=== PATIENT | female | born 1955 | race Two or more races ===

== ENCOUNTER 2017-09-19 17:06 | Emergency (ER) | END 2017-09-19 20:31 | disposition home or self-care (01) ==

== ENCOUNTER 2017-11-24 14:58 | Emergency (ER) | END 2017-11-24 16:05 | disposition home or self-care (01) ==

== ENCOUNTER → 2017-12-06 | Emergency (ER) | END | disposition home or self-care (01) ==

== ENCOUNTER 2018-06-19 12:29 | Emergency (ER) | payer MEDICAID, OTHER ==
[~2018-06-19] VITALS: Wt 68.0 kg
[~2018-06-19 12:29] MED LIST: CEPH-443 PO; IBUP800T48 PO; NAPR-985 PO; TRAM50TA2 PO
[2018-06-19 12:37] VITALS: BP 146/65; PULSE 86; RESP 16
[2018-06-19] MEDS ORDERED: AMOX500C2 PO (14:42)
[2018-06-19] MEDS ORDERED: BENZ-6 PO (14:54)
--- NOTE | 2018-06-19 15:02 | ERD ---
ER Documentation Chief Complaint Chief Complaint cold sx: cough, runny nose, HILLS, fevers x3d no relief w tylenol HPI Patient is a 62-year-old female presents to the ER for concerns of a cough, r hinorrhea, frontal headache and intermittent tactile fevers for the last 3 days. Patient reports taking Tylenol with minimal alleviation of symptoms. Patient reports yellow-green nasal secretions. Patient is her cough is dry in nature. Patient reports tactile fevers. Patient denies any generalized body aches, nausea, vomiting, chest pain, shortness of breath, abdominal pain, diarrhea. Patient denies neck pain or neck stiffness. No recent travel. No sick contacts. ROS All systems reviewed and are negative except as per history of present illness. Medications Home Meds Active Scripts Benzonatate* (Tessalon Perle*) 100 Mg Capsule, 100 MG PO Q8H PRN for COUGH, #20 CAP Prov:ISAIAH BEACH PA-C 06/19/18 Amoxicillin* (Amoxicillin*) 500 Mg Cap, 500 MG PO BID for 7 Days, CAP Prov:ISAIAH BEACH PA-C 06/19/18 Tramadol HCl (Tramadol HCl) 50 Mg Tablet, 50 MG PO Q4 PRN for PAIN, #30 TAB Prov:MATILDA IBARRA MD 12/06/17 Naproxen* (Naprosyn*) 500 Mg Tablet, 500 MG PO BID PRN for PAIN AND/OR INFLAMMATION, #30 TAB Prov:ALEX NATHAN PA-C 11/24/17 Ibuprofen* (Motrin*) 800 Mg Tab, 800 MG PO Q6H PRN for PAIN AND OR ELEVATED T EMP, #30 TAB Prov:SON HAZEL MD 09/19/17 Cephalexin* (Keflex*) 500 Mg Capsule, 500 MG PO QID for 7 Days, CAP Prov:SON HAZEL MD 09/19/17 Allergies Allergies: Coded Allergies: No Known Allergy (Verified Allergy, 04/04/11) PMhx/Soc History of Surgery: No Anesthesia Reaction: No Hx Neurological Disorder: No Hx Respiratory Disorders: No Hx Cardiac Disorders: No Hx Psychiatric Problems: No Hx Miscellaneous Medical Probl: No Hx Alcohol Use: No Hx Substance Use: No Hx Tobacco Use: Yes (daily smoker) Smoking Status: Never smoker FmHx Family History: No diabetes Physical Exam Vitals Vital Signs Date Temp Pulse Resp B/P (MAP) Pulse Ox O2 O2 Flow FiO2 Time Delivery Rate 06/19/18 97.4 86 16 146/65 95 12:37 (92) Physical Exam GENERAL: Well-developed, well-nourished female. Appears in no acute distress. Speaking in full sentences HEAD: Normocephalic, atraumatic. EYES: Pupils are equally reactive bilaterally. EOMs grossly intact. No conjunctival erythema. ENT: Bilateral tympanic members are nonerythematous, nonbulging. Turbinates are erythematous. Patient has tenderness to palpation bilateral frontal and maxillary sinuses. Patient does elicit increased pain when bending head downwards. Moist mucous membranes. No uvula deviation. No kissing tonsils. NECK: Supple. No meningismus. Normal range of motion of the neck. LUNG: Clear to auscultation bilaterally. No rhonchi, wheezing, rales or coarse breath sounds. HEART: Regular rate and rhythm. No murmurs, rubs or gallops. BACK: No midline tenderness. EXTREMITIES: Equal pulses bilaterally. No peripheral clubbing, cyanosis or edema. No unilateral leg swelling. NEUROLOGIC: Alert and oriented. Moving all four extremities without any difficulty. Normal speech. Steady gait. SKIN: Normal color. Warm and dry. No rashes or lesions. Procedures/MDM MEDICAL DECISION MAKING: Patient is a 62-year-old female presents ER for concerns of cough, nasal congestion and tactile fevers for the last 3 days patient was afebrile. Patient was not hypoxic. ENT exam was concerning for sinusitis. Lung exam was normal. Given these findings, the patient's presentation is most consistent with sinusitis. Low suspicion for pneumonia, ACS, pleural effusion, PE, pneumothorax, meningitis otitis externa, acute otitis media, strep pharyngitis, epiglottitis or peritonsillar abscess. Patient was nontoxic, non-ill appearing prior to discharge. PRESCRIPTIONS: Tessalon Perles, amoxicillin DISCHARGE: At this time, patient is stable for discharge and outpatient management. Supportive therapies such as OTC throat lozenges, salt water gurgles, popsicles and jello discussed. I have instructed the patient to follow-up with his/her primary care physician in 1-2 days. I have instructed the patient to promptly return to the ER for any new or worsening symptoms including increased pain, swelling, fever, nausea, vomiting, weakness or difficulty breathing. The patient and/or family expressed understanding of and agreement with this plan. All questions were answered. Home care instructions were provided. Disclaimer: Inadvertent spelling and grammatical errors are likely due to EHR/dictation software use and do not reflect on the overall quality of patient care. Also, please note that the electronic time recorded on this note does not necessarily reflect the actual time of the patient encounter. Departure Diagnosis: Primary Impression: Sinusitis Sinusitis location: unspecified location Chronicity: unspecified Qualified Codes: J32.9 - Chronic sinusitis, unspecified Additional Impression: Upper respiratory infection URI type: unspecified URI Qualified Codes: J06.9 - Acute upper respiratory infection, unspecified Condition: Stable Patient Instructions: Preventing Common Respiratory Infections, Sinusitis, Abx Tx Referrals: [facility] YOU HAVE RECEIVED A MEDICAL SCREENING EXAM AND THE RESULTS INDICATE THAT YOU DO NOT HAVE A CONDITION THAT REQUIRES URGENT TREATMENT IN THE EMERGENCY DEPARTMENT. FURTHER EVALUATION AND TREATMENT OF YOUR CONDITION CAN WAIT UNTIL YOU ARE SEEN IN YOUR DOCTORS OFFICE WITHIN THE NEXT 1-2 DAYS. IT IS YOUR RESPONSIBILITY TO MAKE AN APPOINTMENT FOR FOLOW-UP CARE. IF YOU HAVE A PRIMARY DOCTOR --you should call your primary doctor and schedule an appointment IF YOU DO NOT HAVE A PRIMARY DOCTOR YOU CAN CALL OUR PHYSICIAN REFERRAL HOTLINE AT IF YOU CAN NOT AFFORD TO SEE A PHYSICIAN YOU CAN CHOSE FROM THE FOLLOWING [facility] [address] [facility] [facility] [address] [facility] [facility] [address] [facility] [facility] [address] [facility] [facility] [address] [facility] [facility]. [address] [facility]. [facility] YOU HAVE RECEIVED A MEDICAL SCREENING EXAM AND THE RESULTS INDICATE THAT YOU DO NOT HAVE A CONDITION THAT REQUIRES URGENT TREATMENT IN THE EMERGENCY DEPARTMENT. FURTHER EVALUATION AND TREATMENT OF YOUR CONDITION CAN WAIT UNTIL YOU ARE SEEN IN YOUR DOCTORS OFFICE WITHIN THE NEXT 1-2 DAYS. IT IS YOUR RESPONSIBILITY TO MAKE AN APPOINTMENT FOR FOLOW-UP CARE. IF YOU HAVE A PRIMARY DOCTOR --you should call your primary doctor and schedule and appointment IF YOU DO NOT HAVE A PRIMARY DOCTOR YOU CAN CALL OUR PHYSICIAN REFERRAL HOTLINE AT . IF YOU CAN NOT AFFORD TO SEE A PHYSICIAN YOU CAN CHOSE FROM THE FOLLOWING [facility] INSTITUTIONS: [facility] [address] [place] [address] [facility] [address] [place] [address] [facility] [address] [place] [address] Additional Instructions: Llame al doctor MAANA y acosta anna CHICHI PARA DENTRO DE 1-2 RANDHAWA.Dgale a la secretaria que nosotros le instruimos hacer esta chichi.Avise o llame si quinones condicin se empeora antes de la chichi. Regresa aqui si peor o no mejor. ISAIAH BEACH PA-C Jun 19, 2018 15:02
== END 2018-06-19 15:00 | disposition home or self-care (01) ==
LOC: FTE 12:29
DX: J32.9 Chronic sinusitis, unspecified (principal); F17.210 Nicotine dependence, cigarettes, uncomplicated; J06.9 Acute upper respiratory infection, unspecified
CPT/HCPCS: 99283

== ENCOUNTER 2018-09-27 01:38 | Emergency (ER) | payer MEDICARE, OTHER ==
[~2018-09-27] VITALS: Ht 152.4 cm; Wt 65.2 kg
[~2018-09-27 01:38] MED LIST changes: +AMOX500C2 PO; +BENZ-6 PO
[2018-09-27 01:41] VITALS: BP 109/59; PULSE 77; RESP 16; Ht 152.4 cm; Wt 65.2 kg
--- NOTE | 2018-09-27 03:07 | ERD ---
ER Documentation Chief Complaint Chief Complaint neck pain, dizziness and vomiting x 4 days HPI 63-year-old female, previously healthy, presents to the emergency department, complaining of 4 days with diarrhea and nausea after visiting her family in [place] 4 days ago; where several family members had similar symptoms. The patient is experiencing approximately 3 episodes of watery diarrhea per day, associated with mild mucus. The patient also reports to episodes of postprandial emesis per day. She denies abdominal pain, no fever, no chills. In addition, the patient has been complaining of neck pain during the last 2 days. No headache, no blurry vision, no distal weakness, numbness or tingling. ROS All systems reviewed and are negative except as per history of present illness. Medications Home Meds Active Scripts Benzonatate* (Tessalon Perle*) 100 Mg Capsule, 100 MG PO Q8H PRN for COUGH, #20 CAP Prov:ISAIAH BEACH PA-C 06/19/18 Amoxicillin* (Amoxicillin*) 500 Mg Cap, 500 MG PO BID for 7 Days, CAP Prov:ISAIAH BEACH PA-C 06/19/18 Tramadol HCl (Tramadol HCl) 50 Mg Tablet, 50 MG PO Q4 PRN for PAIN, #30 TAB Prov:MATILDA IBARRA MD 12/06/17 Naproxen* (Naprosyn*) 500 Mg Tablet, 500 MG PO BID PRN for PAIN AND/OR INFLAMMATION, #30 TAB Prov:ALEX NATHAN PA-C 11/24/17 Ibuprofen* (Motrin*) 800 Mg Tab, 800 MG PO Q6H PRN for PAIN AND OR ELEVATED TEMP, #30 TAB Prov:SON HAZEL MD 09/19/17 Cephalexin* (Keflex*) 500 Mg Capsule, 500 MG PO QID for 7 Days, CAP Prov:SON HAZEL MD 09/19/17 Allergies Allergies: Coded Allergies: No Known Allergy (Verified Allergy, 04/04/11) PMhx/Soc History of Surgery: No Anesthesia Reaction: No Hx Neurological Disorder: No Hx Respiratory Disorders: No Hx Cardiac Disorders: No Hx Psychiatric Problems: No Hx Miscellaneous Medical Probl: No Hx Alcohol Use: No Hx Substance Use: No Hx Tobacco Use: Yes (daily smoker) Physical Exam Vitals Vital Signs Date Temp Pulse Resp B/P (MAP) Pulse Ox O2 O2 Flow FiO2 Time Delivery Rate 09/27/18 98.9 77 16 109/59 99 01:41 (76) Physical Exam Patient alert, oriented, vital signs stable. HEENT: Normocephalic, atraumatic. EYES: PERRLA, EOMI, Sclera and conjunctiva appear normal. EARS: Canals clear, tympanic membranes WNL. THROAT: Normal oropharynx. NECK: Supple, No lymphadenopathy. Full ROM without pain or tenderness. HEART: RRR, no rubs, murmurs, clicks or gallops. LUNGS: Clear to auscultation. ABDOMEN: Soft, non-tender without masses or hepatosplenomegaly. EXTREMITIES: No edema bilaterally. BACK: Full ROM, no deformity, normal back exam NEURO: Cranial nerves grossly intact, no motor or sensory deficit SKIN: No rashes, no petechia. Results 24 hrs Current Medications Medications Dose Sig/Gwendolyn Start Time Status Last (Trade) Ordered Route PRN Stop Time Admin Dose Reason Admin Ketorolac 15 mg ONCE STAT 09/27/18 DC 09/27/18 Tromethamine IM 03:52 09/27/18 04:10 (Toradol) 03:54 Ondansetron 4 mg ONCE STAT 09/27/18 DC 09/27/18 HCl (Zofran ODT 03:52 09/27/18 04:09 Odt) 03:54 Procedures/MDM Physical exam unremarkable, patient in no distress, hydrated, adequate oral intake, abdomen, soft, nontender, no peritoneal signs. Differential diagnosis include but not limited to: gastrointestinal infection bacterial/viral, UTI, appendicitis, colitis, food poisoning, food intolerance. Low suspicion for acute abdomen Physical examination and clinical presentation consistent most likely with gastroenteritis. During the ED course the patient remained stable, overall improvement of the symptoms after receiving treatment in the emergency department with Zofran and Toradol. Clinical impression discussed with the patient who agrees with management. The patient is stable to be discharged home, Some side effects of prescribed medications (headache, rash, nausea, vomiting, diarrhea, interactions with other medications) were reviewed. The patient requires a follow up with the primary care provider in the next 48h. If symptoms persist, worsen or new symptoms develop, then patient should return to the ED immediately. Disclaimer: Inadvertent spelling and grammatical errors are likely due to EHR/dictation software use and do not reflect on the overall quality of patient care. Also, please note that the electronic time recorded on this note does not necessarily reflect the actual time of the patient encounter. Departure Diagnosis: Primary Impression: Gastroenteritis Condition: Stable Additional Instructions: Muchas tejas por [facility] para quinones servicio. Esperamos que en quinones visita a la santiago de emergencia quinones problema medico haya sido solucionado y que se sienta mucho mejor. Para estar seguros que quinones mejoria sigue en proceso, le pedimos el favor de hacer anna michael de seguimiento medico con quinones doctor primario en los proximos 2-4 lynn. Lleve con usted estos documentos y las medicinas recetadas. Si austen sintomas empeoran, NO SE ESPERE, por favor regrese a santiago de emergencia INMEDIATAMENTE. En servando que usted no tenga un mdico de atencin primaria: Llame al mdico o clnica comunitaria de referencia que aparece abajo ba las horas de consultorio para hacer anna michael para que le vean. CLINICAS: [facility] [phone] [address] [facility] [phone] [address] [facility] [facility] [phone] [facility] [phone] [address] [facility]. [place] [id number] [phone] [facility]. [phone] DUNG OJEDA MD Sep 27, 2018 03:07
[2018-09-27] MEDS ORDERED: KETOROLAC 15 MG INJ IM STA (03:52)
[2018-09-27] MEDS ORDERED: ONDANSETRON (ODT) 4 MG TAB ODT STA (03:52)
[2018-09-27] MEDS ORDERED: ONDA4TAB8 PO (04:46)
[2018-09-27] MEDS ORDERED: CEPH-443 PO (04:46)
[2018-09-27] MEDS ORDERED: RANI150T35 PO (04:46)
== END 2018-09-27 05:20 | disposition home or self-care (01) ==
LOC: FTE 01:38
DX: K52.9 Noninfective gastroenteritis and colitis, unspecified (principal); F17.210 Nicotine dependence, cigarettes, uncomplicated
CPT/HCPCS: 96372; 99284; J1885

== ENCOUNTER 2018-11-10 10:01 | Emergency (ER) | payer MEDICARE, OTHER ==
[~2018-11-10] VITALS: Wt 78.0 kg
[~2018-11-10 10:01] MED LIST changes: +ONDA4TAB8 PO; +RANI150T35 PO
[2018-11-10 10:04] VITALS: BP 140/78; PULSE 83; RESP 18
[2018-11-10] MEDS ORDERED: ONDANSETRON 4 MG INJ IV STA (10:28)
[2018-11-10] MEDS ORDERED: SOD CHLORIDE 0.9% 1,000 ML IV STA (10:28)
[2018-11-10] MEDS ORDERED: KETOROLAC 30 MG INJ IV STA (10:28)
[2018-11-10] MEDS ORDERED: NAPR-985 PO (11:45)
--- NOTE | 2018-11-10 12:09 | ERD ---
ER Documentation Chief Complaint Chief Complaint DYSURIA X 8 DAYS WITH BACK PAIN HPI 83-year-old female presenting with urinary frequency and suprapubic tenderness with headache and neck stiffness. She has had no fevers. She took Tylenol last night. She denies any chest pain or shortness of breath. Denies dysuria. Has some mild flank pain. Denies medical problems. NKDA. Surgical history denies. Social history denies. ROS All systems reviewed and are negative except as per history of present illness. Medications Home Meds Active Scripts Naproxen* (Naprosyn*) 500 Mg Tablet, 500 MG PO BID PRN for PAIN AND/OR INFLAMMATION, #30 TAB Prov:TIGRE FIGUEROAC 11/10/18 Ranitidine Hcl* (Zantac*) 150 Mg Tablet, 150 MG PO BID PRN for EPIGASTRIC PAIN, #10 TAB Prov:DUNG PEREZ MD 09/27/18 Ondansetron Hcl* (Zofran*) 4 Mg Tablet, 4 MG PO Q8H PRN for NAUSEA AND/OR VOMITING, #12 TAB Prov:DUNG PEREZ MD 09/27/18 Cephalexin* (Keflex*) 500 Mg Capsule, 500 MG PO QID for 5 Days, CAP Prov:DUNG PEREZ MD 09/27/18 Benzonatate* (Tessalon Perle*) 100 Mg Capsule, 100 MG PO Q8H PRN for COUGH, #20 CAP Prov:ISAIAH BEACH-C 06/19/18 Amoxicillin* (Amoxicillin*) 500 Mg Cap, 500 MG PO BID for 7 Days, CAP Prov:ISAIAH BEACH-C 06/19/18 Tramadol HCl (Tramadol HCl) 50 Mg Tablet, 50 MG PO Q4 PRN for PAIN, #30 TAB Prov:MATILDA IBARRA MD 12/06/17 Naproxen* (Naprosyn*) 500 Mg Tablet, 500 MG PO BID PRN for PAIN AND/OR INFLAMMATION, #30 TAB Prov:ALEX NATHANC 11/24/17 Ibuprofen* (Motrin*) 800 Mg Tab, 800 MG PO Q6H PRN for PAIN AND OR ELEVATED TEMP, #30 TAB Prov:SON HAZEL MD 09/19/17 Cephalexin* (Keflex*) 500 Mg Capsule, 500 MG PO QID for 7 Days, CAP Prov:SON HAZEL MD 09/19/17 Allergies Allergies: Coded Allergies: No Known Allergy (Verified Allergy, 04/04/11) PMhx/Soc Medical and Surgical Hx: pt denies Medical Hx, pt denies Surgical Hx History of Surgery: No Anesthesia Reaction: No Hx Neurological Disorder: No Hx Respiratory Disorders: No Hx Cardiac Disorders: Yes (HTN) Hx Psychiatric Problems: No Hx Miscellaneous Medical Probl: No Hx Alcohol Use: No Hx Substance Use: No Hx Tobacco Use: No (daily smoker) Smoking Status: Never smoker FmHx Family History: No diabetes, No coronary disease, No other Physical Exam Vitals Vital Signs Date Temp Pulse Resp B/P (MAP) Pulse Ox O2 O2 Flow FiO2 Time Delivery Rate 11/10/18 98.1 83 18 140/78 99 10:04 (98) Physical Exam GENERAL: The patient is well-appearing, well-nourished, in no acute distress HEENT: Atraumatic. Conjunctivae are pink. Pupils equal, round, and reactive to light. There is no scleral icterus. Tympanic membranes clear bilaterally. Oropharynx clear. NECK: C-spine is soft and supple. There is no meningismus. There is no cervical lymphadenopathy. CHEST: Clear to auscultation bilaterally. There are no rales, wheezes or rhonchi. HEART: Regular rate and rhythm. No murmurs, clicks, rubs or gallops. ABDOMEN:Soft, nontender and nondistended. Good bowel sounds. No rebound or guarding. No gross peritonitis. No gross organomegaly or masses. BACK: No midline or flank tenderness. E Result Diagram: 11/10/18 1038 11/10/18 1038 Results 24 hrs Laboratory Tests Test 11/10/18 10:27 11/10/18 10:38 Bedside Urine pH (LAB) 6.0 Bedside Urine Protein (LAB) Negative Bedside Urine Glucose (UA) Negative Bedside Urine Ketones (LAB) Negative Bedside Urine Blood 2+ Bedside Urine Nitrite (LAB) Negative Bedside Urine Leukocyte Esterase (L Negative White Blood Count 10.7 10^3/ul Red Blood Count 4.26 10^6/ul Hemoglobin 13.1 g/dl Hematocrit 39.1 % Mean Corpuscular Volume 91.8 fl Mean Corpuscular Hemoglobin 30.8 pg Mean Corpuscular Hemoglobin Concent 33.5 g/dl Red Cell Distribution Width 12.1 % Platelet Count 291 10^3/UL Mean Platelet Volume 10.5 fl Immature Granulocytes % 0.300 % Neutrophils % 69.5 % Lymphocytes % 21.0 % Monocytes % 7.6 % Eosinophils % 0.9 % Basophils % 0.7 % Nucleated Red Blood Cells % 0.0 /100WBC Immature Granulocytes # 0.030 10^3/ul Neutrophils # 7.5 10^3/ul Lymphocytes # 2.3 10^3/ul Monocytes # 0.8 10^3/ul Eosinophils # 0.1 10^3/ul Basophils # 0.1 10^3/ul Nucleated Red Blood Cells # 0.0 10^3/ul Urine Color YELLOW Urine Clarity CLEAR Urine pH 5.0 Urine Specific Panacea 1.016 Urine Ketones NEGATIVE mg/dL Urine Nitrite NEGATIVE mg/dL Urine Bilirubin NEGATIVE mg/dL Urine Urobilinogen NEGATIVE mg/dL Urine Leukocyte Esterase NEGATIVE Mark/ul Urine Microscopic RBC 9 /HPF Urine Microscopic WBC 1 /HPF Urine Squamous Epithelial Cells FEW /HPF Urine Mucus FEW /HPF Urine Hemoglobin 3+ mg/dL Urine Glucose NEGATIVE mg/dL Urine Total Protein NEGATIVE mg/dl Sodium Level 141 mmol/L Potassium Level 3.5 mmol/L Chloride Level 102 mmol/L Carbon Dioxide Level 28 mmol/L Anion Gap 11 Blood Urea Nitrogen 15 mg/dl Creatinine 0.76 mg/dl Est Glomerular Filtrat Rate mL/min > 60 mL/min Glucose Level 114 mg/dl Calcium Level 9.4 mg/dl Total Bilirubin 0.7 mg/dl Direct Bilirubin 0.00 mg/dl Indirect Bilirubin 0.7 mg/dl Aspartate Amino Transf (AST/SGOT) 20 IU/L Alanine Aminotransferase (ALT/SGPT) 31 IU/L Alkaline Phosphatase 108 IU/L Total Protein 8.1 g/dl Albumin 4.4 g/dl Globulin 3.70 g/dl Albumin/Globulin Ratio 1.18 Lipase 218 U/L Current Medications Medications Dose Sig/Gwendolyn Start Time Status Last (Trade) Ordered Route PRN Stop Time Admin Dose Reason Admin Sodium 1,000 ml @ Q1H STAT 11/10/18 DC 11/10/18 Chloride 1,000 mls/hr IV 10:28 10:45 11/10/18 11:27 Ondansetron 4 mg ONCE STAT 11/10/18 DC 11/10/18 HCl (Zofran IV 10:28 10:46 Inj) 11/10/18 10:30 Ketorolac 30 mg ONCE STAT 11/10/18 DC 11/10/18 Tromethamine IV 10:28 10:45 (Toradol) 11/10/18 10:30 Procedures/MDM DIAGNOSTIC IMAGING REPORT Patient: BROOKE ZELAYA : 1955 Age: 63 Sex: F [id number] [id number] DOS: 11/10/18 1028 Ordering MD: GUILHERME FIGUEROA PA-C Location: [facility] Room/Bed: PROCEDURE: CT Abdomen and Pelvis without contrast. CLINICAL INDICATION: Abdominal Pain, right lower quadrant pain radiating to back, fever, dysuria TECHNIQUE: CT scan of the abdomen and pelvis without IV contrast was performed on a multi-detector high-resolution CT scanner. Oral contrast was not administered. Coronal and sagittal reformatted images were obtained from the axial source images. DICOM images are available. Radiation dose: CTDIvol (mGy) = 17.94 ; total DLP (mGy-cm) = 989.11 One or more of the following dose reduction techniques were used: - Automated exposure control. - Adjustment of the mA and/or kV according to patient size. - Use of iterative reconstruction technique. COMPARISON: CT BRAIN 11/10/2018; CT 09/19/2017 FINDINGS: In the absence of intravenous contrast, the study constitutes a limited assessment of the solid organs, bowel and vessels. Lower thorax: Apparent small hiatal hernia. Liver: Normal. Biliary: Normal gallbladder. No biliary dilatation. Pancreas: 2.8 cm cystic pancreatic lesion (series 3 image 42) in the region of the pancreatic body. Spleen: Normal. Adrenal Glands: 3 cm right adrenal adenoma, benign. Kidneys/Ureters: Normal. Bladder: Normal. Reproductive organs: Normal. Gastrointestinal Tract: Scattered colonic diverticula without evidence of diverticulitis. Moderate amount of stool seen in the colon. No evidence of appendicitis. No dilated loops of small bowel to suggest a small bowel obstruction. Peritoneum/Retroperitoneum: No free fluid or free air. Lymph nodes: Normal. Vessels: Mild atherosclerotic calcifications. Abdominal/Pelvic Wall: Normal. Musculoskeletal: Multiple apparent vertebral body hemangiomas. Mild degenerative changes of the visualized spine. IMPRESSION: 1. No acute findings in the abdomen/pelvis. 2. No hydroureternephrosis or obstructing urolithiasis. 3. Benign right adrenal adenoma. 4. Cystic pancreatic lesion measuring 2.8 cm. Recommend correlation with more remote imaging to evaluate for stability if available. Recommend 6-month follow- up MRI pancreatic protocol/MRCP. 5. Additional findings as detailed above. DIAGNOSTIC IMAGING REPORT Patient: BROOKE ZELAYA : 1955 Age: 63 Sex: F MR #: [id number] DOS: 11/10/18 1028 Ordering MD: GUILHERME FIGUEROA PA-C Location: [facility] Room/Bed: PROCEDURE: CT Brain without contrast. CLINICAL INDICATION: Headache. Hypertension. TECHNIQUE: A CT of the brain was performed on a multidetector CT scanner utilizing axial imaging from the skull base through the vertex without IV contrast. Multiplanar reformatted images were made. Images were reviewed on a PACS workstation. The CTDIvol is 40 mGy and the DLP is 634 mGycm. DICOM images are available. One or more of the following dose reduction techniques were utilized: 1.) Automated exposure control 2.) Adjustment of the mA +/- kV according to patient's size 3.) Use of iterative reconstruction technique. COMPARISON: None FINDINGS: There is no intracranial hemorrhage, mass effect, or midline shift. No extra- axial fluid collection is seen. The ventricles and sulci are normal in size and configuration. The density of the brain is normal, and the segundo white matter differentiation appears well-preserved. There is opacification of scattered ethmoid air cells. IMPRESSION: 1. No evidence of acute intracranial pathology. 2. The brain is normal in appearance. ER Course: 1L NS, toradol, zofran given in ED MDM: 63-year-old female presenting with flank pain and headache. Patient CT scans are within normal limits and symptoms are resolved after fluids are given in the ER. I have low suspicion for infectious process. I have low suspicion for urinary tract infection or nephrolithiasis. I do not feel that further work-up or imaging was indicated. Patient is nontoxic-appearing. Patient is discharged with strict ER precautions and supportive medications. Patient is told if symptoms change or worsen to return immediately to the ER. All questions answered at discharge Departure Diagnosis: Primary Impression: Headache Additional Impression: Back pain Condition: Stable Patient Instructions: Self-Care for Headaches Referrals: [facility] YOU HAVE RECEIVED A MEDICAL SCREENING EXAM AND THE RESULTS INDICATE THAT YOU DO NOT HAVE A CONDITION THAT REQUIRES URGENT TREATMENT IN THE EMERGENCY DEPARTMENT. FURTHER EVALUATION AND TREATMENT OF YOUR CONDITION CAN WAIT UNTIL YOU ARE SEEN IN YOUR DOCTORS OFFICE WITHIN THE NEXT 1-2 DAYS. IT IS YOUR RESPONSIBILITY TO MAKE AN APPOINTMENT FOR FOLOW-UP CARE. IF YOU HAVE A PRIMARY DOCTOR --you should call your primary doctor and schedule an appointment IF YOU DO NOT HAVE A PRIMARY DOCTOR YOU CAN CALL OUR PHYSICIAN REFERRAL HOTLINE AT IF YOU CAN NOT AFFORD TO SEE A PHYSICIAN YOU CAN CHOSE FROM THE FOLLOWING [facility] [address] [facility] [address] [facility] [address] [facility] [address] [facility] [address] [facility] [address] [facility] [address] Additional Instructions: FOLLOW UP WITH YOUR PRIMARY CARE PHYSICIAN TOMORROW.Return to this facility if you are not improving as expected. TIGRE FIGUEROA PA-C November 10, 2018 12:09
== END 2018-11-10 11:52 | disposition home or self-care (01) ==
LOC: FTE 10:01
DX: R51 Headache (principal); I10 Essential (primary) hypertension; M54.9 Dorsalgia, unspecified
CPT/HCPCS: 36415; 70450; 74176; 80053; 81001; 83690; 85025; 96361; 96374; 96375; 99285; J1885; J2405; J7030; 81003